=== PATIENT | male | born 1990 | race Caucasian/White ===

== ENCOUNTER 2016-09-15 12:05 | Emergency (ER) | payer BC ==
[2016-09-15] MEDS ORDERED: Morphine 4 MG/ML Syringe IVPUSH ONE (12:13)
[2016-09-15] MEDS ORDERED: Ondansetron 4 MG/2 ML SDV IV ONE (12:13)
[2016-09-15] MEDS ORDERED: Ketorolac 30 MG/ML SDV IVPUSH ONE (12:13)
[2016-09-15] MEDS ORDERED: Sodium Chloride 0.9% 1,000 ML IV ONE (12:22)
--- NOTE | 2016-09-15 12:32 | EDM.PDOC ---
ED HPI GENERAL MEDICAL PROBLEM - General Chief Complaint: Abdominal Pain Stated Complaint: [id number] APPENDIX Time Seen by Provider: 09/15/16 12:12 Source of Information: Reports: Patient, Family History Limitations: Reports: No Limitations - History of Present Illness INITIAL COMMENTS - FREE TEXT/NARRATIVE: Patient was driving with his Father when he had acute onset of RLQ pain that is severe patient is tearful and states it is sharp and radiates into the right testicle. Onset: Sudden Location: Reports: Abdomen Quality: Reports: Sharp, Stabbing Severity: Severe Improves with: Reports: None Worsens with: Reports: None Right Lower Abdominal Pain Score (Numeric/FACES): 9 - Related Data Allergies Allergy/AdvReac Type Severity Reaction Status Date / Time No Known Allergies Allergy Verified 09/15/16 12:20 Home Meds: Home Meds . [No Known Home Meds] 09/15/16 [History] Past Medical History - History Comment History Comment: Father states history of Narcotic abuse ED ROS GENERAL - Review of Systems Review Of Systems: See Below Constitutional: Denies: Fever GI/Abdominal: Reports: Abdominal Pain. Denies: Constipation, Diarrhea, Nausea, Vomiting Skin: Reports: No Symptoms ED EXAM, GI/ABD - Physical Exam Exam: See Below Exam Limited By: No Limitations General Appearance: Alert, Moderate Distress Neck: Normal Inspection, Supple, Non-Tender, Full Range of Motion Respiratory/Chest: No Respiratory Distress, Lungs Clear, Normal Breath Sounds, No Accessory Muscle Use, Chest Non-Tender Cardiovascular: Normal Peripheral Pulses, Regular Rate, Rhythm, No Edema, No Gallop, No JVD, No Murmur, No Rub GI/Abdominal: Soft, No Abnormal Bruit, No Mass, Pelvis Stable, Tenderness, Other (Right flank pain- radiates to right testicle.) (Male) Exam: No Hernia, Normal Inspection, Circumcised, Testicular Tenderness (R). No: Scrotum Tenderness (R), Testicular Mass Neurological: Alert, Oriented, CN II-XII Intact, Normal Cognition, Normal Gait, Normal Reflexes, No Motor/Sensory Deficits Psychiatric: Anxious, Tearful Skin Exam: Warm, Dry, Intact, Normal Color, No Rash Course - Vital Signs Last Recorded V/S: Last Vital Signs Temp 98.0 F 09/15/16 13:33 Pulse 75 09/15/16 13:33 Resp 18 09/15/16 13:33 BP 120/52 L 09/15/16 13:33 Pulse Ox 98 09/15/16 13:33 - Orders/Labs/Meds Labs: Laboratory Tests 09/15/16 09/15/16 09/15/16 Range/Units 12:12 12:12 13:17 WBC 8.0 (5.0-10.0) 10^3/uL RBC 5.47 (4.6-6.2) 10^6/uL Hgb 15.7 (14.0-18.0) g/dL Hct 46.7 (40.0-54.0) % MCV 85.4 (80-100) fL MCH 28.7 (27.0-34.0) pg MCHC 33.6 (33.0-35.0) g/dL Plt Count 296 (150-450) 10^3/uL Neut % (Auto) 62.6 (42.2-75.2) % Lymph % (Auto) 28.1 (20.5-50.1) % [place] % (Auto) 7.1 (2-8) % Eos % (Auto) 2.1 (1.0-3.0) % Baso % (Auto) 0.1 (0.0-1.0) % Sodium 137 (135-145) mmol/L Potassium 4.1 (3.6-5.0) mmol/L Chloride 100 L (101-111) mmol/L Carbon Dioxide 27.0 (21.0-31.0) mmol/L Anion Gap 14.1 BUN 12 (7-18) mg/dL Creatinine 0.9 (0.6-1.3) mg/dL Est Cr Clr Drug Dosing 135.96 mL/min Estimated GFR (MDRD) > 60 BUN/Creatinine Ratio 13.33 Glucose 118 H (74-105) mg/dL Calcium 9.1 (8.4-10.2) mg/dl Total Bilirubin 0.5 (0.2-1.0) mg/dL AST 50 H (10-42) IU/L ALT 117 H (10-60) IU/L Alkaline Phosphatase 87 (42-121) IU/L Creatine Kinase 191 H (26-174) IU/L Total Protein 8.3 H (6.7-8.2) g/dl Albumin 4.7 (3.2-5.5) g/dl Globulin 3.6 Albumin/Globulin Ratio 1.31 Urine Color Yellow (YELLOW) Urine Appearance Clear (CLEAR) Urine pH 6.5 (5.0-9.0) Ur Specific [place] 1.015 (1.005-1.030) Urine Protein Negative (NEGATIVE) Urine Glucose (UA) Negative (NEGATIVE) Urine Ketones Negative (NEGATIVE) Urine Occult Blood Small H (NEGATIVE) Urine Nitrite Negative (NEGATIVE) Urine Bilirubin Negative (NEGATIVE) Urine Urobilinogen 0.2 (0.2-1.0) mg/dL Ur Leukocyte Esterase Negative (NEGATIVE) Urine RBC 0-5 /HPF Urine WBC 0-5 (0-5/HPF) /HPF Ur Epithelial Cells Occasional /HPF Urine Bacteria Occasional (0-FEW/HPF) /HPF Urine Mucus Few H /LPF Meds: Medications Discontinued Medications Generic Name Dose Route Start Last Admin Trade Name Freq PRN Reason Stop Dose Admin Ketorolac Tromethamine 30 mg 09/15/16 12:13 09/15/16 12:21 Toradol IVPUSH 09/15/16 12:14 30 mg ONETIME ONE Administration Morphine Sulfate 4 mg 09/15/16 12:13 09/15/16 12:22 Morphine IVPUSH 09/15/16 12:14 4 mg ONETIME ONE Administration Ondansetron HCl 4 mg 09/15/16 12:13 09/15/16 12:20 Zofran IV 09/15/16 12:14 4 mg ONETIME ONE Administration - Radiology Interpretation Free Text/Narrative:: CT stone protocol showes 4.5mm calculi in the distal right ureter with associated dilatation of the ipsilateral ureter and calyceal system of the right kidney. otherwise negative per radiology report reviewed by myself. - Re-Assessments/Exams Free Text/Narrative Re-Assessment/Exam: 09/15/16 13:54 on re exam patient is comfortable and he and his father told of results and the need to follow up with urologist in 24-48 hours and return to ER for uncontrolled pain. Departure - Departure Time of Disposition: 13:56 Disposition: Home, Self-Care 01 Condition: good Clinical Impression: Kidney stone on right side - Discharge Information Instructions: Kidney Stones, [id number], Renal Colic, [id number] Forms: ED Department Discharge Additional Instructions: Strain urine if you get stone take with you to Urology. Take meds as directed. Return to the ER if pain becomes uncontrollable. Follow up with Urologist in 24-48 hours if stone not passed or still in pain.
[2016-09-15 12:48] LABS: CHLORIDE,CL 100 mmol/L (101-111); SODIUM,NA 137 mmol/L (135-145)
[2016-09-15 13:34] VITALS: BP 120/52
--- NOTE | 2016-09-15 13:46 | CT ---
Clinical history: 25-year-old 180 pound male with acute right lower quadrant pain that extends into the ipsilateral testicle. Rule out renal stone or other abnormality. Scan technique: Volume acquisition of data emergency unenhanced CT scan of the abdomen and pelvis (k idneys/ureters/bladder) obtained with patient lying supine on the Siemens multi slice CT scanner [place], [place]. All data archived in the PACS system for storage, refo rmatting and study. Interpretation: Abnormal. 1. *Solitary round 4.5 mm diameter calcification (ureterolith) lodged in the distal right ureter wit h associated dilatation of the ipsilateral ureter and calyceal system right kidney. 2. No other signs of nephrolithiasis and no obstructive uropathy on the left. No intraluminal bladde r calcifications. 3. Normal appendix RLQ. No pelvic or abdominal mass lesion, inflammatory "dirty" peritoneal fat, sig ns of mesenteric or retroperitoneal lymphadenopathy. No sign of mechanical bowel obstruction, ascite s or free intraperitoneal air. 4. Gallbladder, liver, stomach, spleen, pancreas and adrenal glands unremarkable. 5. Normal caliber aortoiliac vessels. Normal heart. Lung bases clear. 6. Normal lumbar spine. CONCLUSION: Distal right ureterolith with associated, ipsilateral, obstructive uropathy.
[2016-09-15] MEDS ORDERED: Morphine 2 MG/ML Syringe IM ONE (13:55)
[2016-09-15] MEDS ORDERED: Tamsulosin 0.4 MG Cap.ER PO ONE (13:55)
== END 2016-09-15 14:29 | disposition home or self-care (01) ==
LOC: DL.ED 12:05
DX: N20.2 Calculus of kidney with calculus of ureter (principal)
CPT/HCPCS: 36415; 74176; 80053; 81001; 82550; 85025; 96374; 96375; 96376; 99285; A9270; J1885; J2270; J2405; J7030